=== PATIENT | male | born 1955 | race Caucasian/White ===

== ENCOUNTER 2019-02-15 10:38 | Day surgery (SDC) | payer OTHER, SELFPAY ==
[2019-02-15] MEDS: PROPARACAINE 0.5% OPHTH SOL 2 DROPS EYE-OP (11:35)
[2019-02-15] MEDS: CATARACT EYE COMPOUND (10 DROPS/SYRINGE) 3 DROPS EYE-OP (11:37)
[2019-02-15 11:39] VITALS: BP 151/84; PULSE 67; RESP 16; TEMP 36.7; O2SAT 99; BMI 29.8
--- NOTE | 2019-02-15 12:30 | PM.PREOP ---
Pre-operative Note Interval Note History & Physical reviewed/Exam performed by Physician: No Changes to H&P: No
--- NOTE | 2019-02-15 12:30 | PM.OP.1 ---
Operative Date/Time/Diagnoses Pre-op diagnosis: Nuclear cataract right eye Procedure & Clinicians Procedure: Cataract Surgery Same procedure as scheduled: Yes Surgeon: Patric Stoner Anesthesia Type: MAC +/- and Sedation Operative Notes Procedure in detail: Patient brought to the operating suite. Tetracaine drops placed in the right eye. Patient was prepped and draped in sterile manner. Wire lid speculum was placed in the eye. Betadine drops were placed on the eye. This was irrigated. Lidocaine jelly was placed on the eye. A paracentesis port was created with a side-port blade. 0.1 mL 1% preservative free lidocaine was injected into the anterior chamber. The anterior chamber was deepened with viscoelastic. 2.6 mm keratome was used to create a temporal clear corneal incision. Cystotome and Utrata forceps were used to create continuous tear capsulorrhexis. Balanced salt solution was used to hydro dissect the nucleus. The phacoemulsification handpiece was inserted and the nucleus was removed using the stop and chop technique. The irrigation aspiration handpiece was inserted and the remaining cortex was removed. Anterior chamber was deepened with viscoelastic. An Rogers ZCB00 intraocular lens with a power of 20.0 was injected into the capsular bag. Irrigation aspiration handpiece was inserted and the remaining viscoelastic was removed. Incision was hydrated with balanced salt solution and found to be leak free with pressure with Weck-Magi sponges. 0.1 mL Vigamox injected anterior chamber. 0.3 mL Kenalog 10 mg was injected subconjunctivally. Lid speculum was removed. The patient left the operating room in excellent condition. Complications: none Post-operative Condition: stable Disposition: same day surgery
[2019-02-15] MEDS: LIDOCAINE JELLY 2% 5 ML 1 APPLIC TOP (12:48)
[2019-02-15] MEDS: CHONDROIDTIN/SOD HYALURONATE 1.05 ML SYRINGE INTRAOCULA (12:48)
[2019-02-15] MEDS: TETRACAINE 0.5% OPHTH DROPS 4 ML 2 DROPS EYE-OP (12:49)
[2019-02-15] MEDS: MOXIFLOXACIN INJ 5 MG/ML VIAL EYE-OP (12:49)
[2019-02-15] MEDS: PHENYLEPHRINE/LIDOCAINE VIAL (OR) 0.2 ML EYE-OP (12:49)
[2019-02-15] MEDS: TRIAMCINOLONE 50 MG/5 ML VIAL INJ (12:50)
[2019-02-15] MEDS: BALANCED SALT IRRIG SOLN NO.2 500 ML, EPINEPHrine 1 MG IRR (12:50)
[2019-02-15 13:10] VITALS: BP 131/81; PULSE 77; RESP 16; TEMP 36.7; O2SAT 98
--- NOTE | 2019-02-15 15:57 | SUR.PHASEII ---
1315 iv d/c'ed prior to discharge.
== END 2019-02-15 13:30 | disposition home or self-care (01) ==
PROVIDERS: Family Provider Internal Medicine; PCP Internal Medicine; Visit Provider Ophthalmology
PROC: (CPT 66984; principal; 2019-02-15 12:45)
DX: H25.11 Age-related nuclear cataract, right eye (principal); E11.9 Type 2 diabetes mellitus without complications; I10 Essential (primary) hypertension; Z79.84 Long term (current) use of oral hypoglycemic drugs
CPT/HCPCS: 66984; J0171; J2250; J3301

== ENCOUNTER 2019-03-01 09:03 | Day surgery (SDC) | payer OTHER, SELFPAY ==
[2019-03-01] MEDS: PROPARACAINE 0.5% OPHTH SOL 2 DROPS EYE-OP (10:05)
[2019-03-01 10:12] VITALS: BP 146/82; PULSE 62; RESP 16; TEMP 36.4; O2SAT 98; BMI 30.2
[2019-03-01] MEDS: CATARACT EYE COMPOUND (10 DROPS/SYRINGE) 3 DROPS EYE-OP (10:25)
--- NOTE | 2019-03-01 10:42 | PM.PREOP ---
Pre-operative Note Interval Note History & Physical reviewed/Exam performed by Physician: No Changes to H&P: No
--- NOTE | 2019-03-01 10:42 | PM.OP.1 ---
Operative Date/Time/Diagnoses Pre-op diagnosis: Nuclear Cataract Left eye Post-op diagnosis: same Procedure & Clinicians Surgeon: Patric Stoner Anesthesia Type: MAC +/- and Sedation Operative Notes Procedure in detail: Patient brought to the operating suite. Tetracaine drops placed in the left eye. Patient was prepped and draped in sterile manner. Wire lid speculum was placed in the eye. Betadine drops were placed on the eye. This was irrigated. Lidocaine jelly was placed on the eye. A paracentesis port was created with a side-port blade. 0.1 mL 1% preservative free lidocaine was injected into the anterior chamber. The anterior chamber was deepened with viscoelastic. 2.6 mm keratome was used to create a temporal clear corneal incision. Cystotome and Utrata forceps were used to create continuous tear capsulorrhexis. Balanced salt solution was used to hydro dissect the nucleus. The phacoemulsification handpiece was inserted and the nucleus was removed using the stop and chop technique. The irrigation aspiration handpiece was inserted and the remaining cortex was removed. Anterior chamber was deepened with viscoelastic. An Rogers ZCB00 intraocular lens with a power of 20.5 was injected into the capsular bag. Irrigation aspiration handpiece was inserted and the remaining viscoelastic was removed. Incision was hydrated with balanced salt solution and found to be leak free with pressure with Weck-Magi sponges. 0.1 mL Vigamox injected anterior chamber. 0.3 mL Kenalog 10 mg was injected subconjunctivally. Lid speculum was removed. The patient left the operating room in excellent condition. Complications: none Post-operative Condition: stable Disposition: same day surgery
--- NOTE | 2019-03-01 10:53 | SUR.OPER ---
Supine on eye stretcher, head on extension cradle secured with tape. Arms tucked at sides with blanket. Pillow under knees.
[2019-03-01] MEDS: MOXIFLOXACIN INJ 5 MG/ML VIAL EYE-OP (10:54)
[2019-03-01] MEDS: PHENYLEPHRINE/LIDOCAINE VIAL (OR) 0.2 ML EYE-OP (10:54)
[2019-03-01] MEDS: CHONDROIDTIN/SOD HYALURONATE 1.05 ML SYRINGE INTRAOCULA (10:54)
[2019-03-01] MEDS: TETRACAINE 0.5% OPHTH DROPS 4 ML 2 DROPS EYE-OP (10:55)
[2019-03-01] MEDS: TRIAMCINOLONE 50 MG/5 ML VIAL INJ (10:55)
[2019-03-01] MEDS: BALANCED SALT IRRIG SOLN NO.2 500 ML, EPINEPHrine 1 MG IRR (10:55)
[2019-03-01] MEDS: LIDOCAINE JELLY 2% 5 ML 1 APPLIC TOP (10:55)
[2019-03-01 11:12] VITALS: BP 129/80; PULSE 62; RESP 15; TEMP 36.3; O2SAT 98
== END 2019-03-01 11:22 | disposition home or self-care (01) ==
PROVIDERS: Family Provider Internal Medicine; PCP Internal Medicine; Visit Provider Ophthalmology
PROC: (CPT 66984; principal; 2019-03-01 11:15)
DX: H25.12 Age-related nuclear cataract, left eye (principal); E11.9 Type 2 diabetes mellitus without complications; I10 Essential (primary) hypertension; Z79.4 Long term (current) use of insulin
CPT/HCPCS: 66984; J0171; J2250; J3301

== ENCOUNTER → 2019-09-13 08:30 | Outpatient (CLI) | payer OTHER, SELFPAY ==
[2019-09-13 09:25] LABS: Add Manual Diff / Slide Review NO; Basophils Absolute Auto 0 /uL (0-100); Eosinophils Absolute Auto 200 /uL (0-450); Hematocrit 29.4 % (41-53); Hemoglobin 9.5 g/dL (13.5-17.5); Lymphocytes Absolute Auto 1300 /uL (1100-4500); Lymphocytes Percent Auto 33.3 % (25-40); Mean Corpuscular HGB Conc 32.2 % (30-36); Mean Corpuscular Hemoglobin 21.6 PG (26-34); Mean Corpuscular Volume 67.1 fL (80-100); Monocytes Absolute Auto 300 /uL (0-900); Monocytes Percent Auto 8.7 % (3-14); Neutrophils Absolute Auto 2000 /uL (1500-7000); Platelet Count 96 X10^3/uL (150-400); Red Blood Cell Count 4.38 X10^6/uL (4.5-5.9); White Blood Cell Count 3.9 X10^3/uL (4.5-11.0)
[2019-09-13 09:42] LABS: Hemoglobin A1C% w Est Avg Glu 8.1 % (4.0-6.0)
[2019-09-13 10:05] LABS: Alanine Aminotransferase 30 IU/L (<50); Albumin Globulin Ratio 1.4 (1.0-2.8); Alkaline Phosphatase 67 U/L (38-126); Aspartate Aminotransferase 47 IU/L (17-59); Bilirubin Total 1.2 mg/dL (0.2-1.3); Blood Urea Nitrogen 16 mg/dL (9-20); Calcium 9.3 mg/dL (8.4-10.2); Carbon Dioxide 25 mmol/L (22-32); Chloride 105 mmol/L (98-107); Cholesterol 124 mg/dL (140-199); Estimated Glomerular Filt Rate > 60.0 mL/min (>60); Globulin 2.9 g/dL (1.7-4.1); Glucose 163 mg/dL (80-110); HDL Cholesterol 23 mg/dL (40-60); HEMOLYSIS < 15 (0-50); LDL Cholesterol Calculated 58 mg/dL (<100); Potassium 4.5 mmol/L (3.4-5.1); Sodium 139 mmol/L (137-145); Total Protein 6.9 g/dL (6.3-8.2); Triglycerides 215 mg/dL (35-150)
[2019-09-13 10:19] LABS: Hypochromasia 2+; Microcytosis 2+; Poikilocytosis 1+
[2019-09-13 10:37] LABS: TSH w/ Reflex to FT4 1.98 uIU/mL (0.47-4.68)
[2019-09-13 14:04] LABS: Magnesium 2.2 mg/dL (1.6-2.3)
[2019-09-13 15:25] LABS: HEMOLYSIS < 15 (0-50); Iron 42 ug/dL (49-181)
[2019-09-13 15:36] LABS: Percent Iron Saturation 8 % (20-50); Total Iron Binding Capacity 495 ug/dL (261-462); Transferrin 380 mg/dL (206-381)
[2019-09-13 16:01] LABS: Ferritin 8 ng/mL (18-464)
== END ==
PROVIDERS: Family Provider Internal Medicine; PCP Internal Medicine; Referring Provider Internal Medicine; Visit Provider Internal Medicine
DX: I10 Essential (primary) hypertension (principal); E11.9 Type 2 diabetes mellitus without complications; K75.81 Nonalcoholic steatohepatitis (NASH)
CPT/HCPCS: 36415; 80053; 80061; 82728; 83036; 83540; 83550; 83735; 84443; 85025

== ENCOUNTER → 2019-11-02 13:34 | Outpatient (CLI) | payer OTHER, SELFPAY ==
[2019-11-02 14:18] LABS: Add Manual Diff / Slide Review NO; Basophils Absolute Auto 0 /uL (0-100); Basophils Percent Auto 0.9 % (0-2); Eosinophils Absolute Auto 200 /uL (0-450); Eosinophils Percent Auto 4.8 % (2-4); Hematocrit 33.1 % (41-53); Hemoglobin 10.4 g/dL (13.5-17.5); Lymphocytes Absolute Auto 1100 /uL (1100-4500); Lymphocytes Percent Auto 25.2 % (25-40); Mean Corpuscular HGB Conc 31.5 % (30-36); Mean Corpuscular Hemoglobin 22.6 PG (26-34); Mean Corpuscular Volume 71.9 fL (80-100); Monocytes Absolute Auto 400 /uL (0-900); Monocytes Percent Auto 9.4 % (3-14); Neutrophils Absolute Auto 2700 /uL (1500-7000); Neutrophils Percent Auto 59.7 % (50-75); Platelet Count 99 X10^3/uL (150-400); Red Blood Cell Count 4.61 X10^6/uL (4.5-5.9); Red Cell Distribution Width 25.4 % (11.6-14.8); White Blood Cell Count 4.4 X10^3/uL (4.5-11.0)
[2019-11-02 14:33] LABS: HEMOLYSIS < 15 (0-50); Iron 49 ug/dL (49-181)
[2019-11-02 14:37] LABS: Anisocytosis 2+; Ovalocytes 1+; Poikilocytosis 1+
[2019-11-02 14:44] LABS: Percent Iron Saturation 10 % (20-50); Total Iron Binding Capacity 467 ug/dL (261-462); Transferrin 342 mg/dL (206-381)
== END ==
PROVIDERS: Family Provider Internal Medicine; PCP Internal Medicine; Referring Provider Internal Medicine; Visit Provider Internal Medicine
DX: D50.0 Iron deficiency anemia secondary to blood loss (chronic) (principal)
CPT/HCPCS: 36415; 83540; 83550; 85025

== ENCOUNTER → 2019-12-15 14:05 | Outpatient (CLI) | payer OTHER, SELFPAY ==
[2019-12-15 15:08] LABS: Add Manual Diff / Slide Review NO; Basophils Absolute Auto 0 /uL (0-100); Basophils Percent Auto 0.6 % (0-2); Eosinophils Absolute Auto 200 /uL (0-450); Eosinophils Percent Auto 5.2 % (2-4); Hematocrit 36.8 % (41-53); Hemoglobin 11.9 g/dL (13.5-17.5); Lymphocytes Absolute Auto 1300 /uL (1100-4500); Lymphocytes Percent Auto 30.7 % (25-40); Mean Corpuscular HGB Conc 32.5 % (30-36); Mean Corpuscular Hemoglobin 24.6 PG (26-34); Mean Corpuscular Volume 75.7 fL (80-100); Monocytes Absolute Auto 400 /uL (0-900); Monocytes Percent Auto 10.1 % (3-14); Neutrophils Absolute Auto 2300 /uL (1500-7000); Neutrophils Percent Auto 53.4 % (50-75); Platelet Count 92 X10^3/uL (150-400); Red Blood Cell Count 4.86 X10^6/uL (4.5-5.9); Red Cell Distribution Width 21.5 % (11.6-14.8); White Blood Cell Count 4.2 X10^3/uL (4.5-11.0)
[2019-12-15 15:48] LABS: Anisocytosis 2+; Hypochromasia 1+; Ovalocytes 2+
[2019-12-15 15:50] LABS: Iron 65 ug/dL (49-181)
== END ==
PROVIDERS: Family Provider Internal Medicine; PCP Internal Medicine; Referring Provider Internal Medicine; Visit Provider Internal Medicine
DX: D50.0 Iron deficiency anemia secondary to blood loss (chronic) (principal)
CPT/HCPCS: 36415; 83540; 85025

== ENCOUNTER → 2020-01-31 08:03 | Outpatient (CLI) | payer OTHER, SELFPAY ==
--- NOTE | 2020-01-31 | DI.US.S_ITS ---
PROCEDURE: US ABDOMEN COMPLETE INDICATIONS: CIRRHOSIS TECHNIQUE: Real-time scanning was performed of the abdominal and retroperitoneal organs, with image documentation. Color and pulse Doppler interrogation was also performed of the hepatic and splenic vessels, or of the lesion of interest. COMPARISON: [facility], [place], ABDOMEN COMPLETE, 11/13/2016, 16:29. FINDINGS: Liver: The liver demonstrates normal size. The liver demonstrates generalized mildly increased echogenicity. This decreases ultrasound sensitivity for detection of hepatic masses. However, there is a partially shadowing 2 x 1.6 x 1.7 cm mass within the right lobe of the liver. The liver demonstrates a nodular contour. Doppler: The main portal vein and the left portal vein appear prominent in size and demonstrate partially obstructive thrombus. This is best seen on image 34/75. The main portal vein measures up to 17 mm. Gallbladder: Removed. Biliary ducts: Not seen, obscured by overlying bowel gas. Spleen: Enlarged, measuring 20 cm. An accessory spleen can be seen. Pancreas: Visualized portions of the pancreas appear normal. Kidneys: Both kidneys are normal in size and echotexture. Right kidney measures 10.2 cm long; left kidney measures 10.5 cm long. No hydronephrosis or nephrolithiasis. No solid renal masses. Aorta: Visualized abdominal aorta is normal in caliber at less than 3 cm. Iliacs: Not seen, obscured by overlying bowel gas. IVC: Not well seen, obscured by overlying bowel gas. Miscellaneous: No free abdominal fluid. IMPRESSION: Cirrhotic appearing liver. The main portal vein and left portal vein appear dilated and apparently contain partially obstructing thrombus. Please consider a dedicated liver protocol CT study (without and with contrast) for further evaluation. There is a 2 cm hyperechoic lesion within the right liver lobe. This can be further assessed at the recommended liver protocol CT. Splenomegaly. Status post cholecystectomy. Dictated by: Tobias Stoner M.D. on 01/31/2020 at 9:08 Approved by: Tobias Stoner M.D. on 01/31/2020 at 9:13
[2020-01-31 10:07] LABS: Add Manual Diff / Slide Review NO; Basophils Absolute Auto 0 /uL (0-100); Basophils Percent Auto 0.7 % (0-2); Eosinophils Absolute Auto 200 /uL (0-450); Eosinophils Percent Auto 5.8 % (2-4); Hematocrit 38.1 % (41-53); Hemoglobin 12.6 g/dL (13.5-17.5); Lymphocytes Absolute Auto 1200 /uL (1100-4500); Lymphocytes Percent Auto 29.3 % (25-40); Mean Corpuscular HGB Conc 33.1 % (30-36); Mean Corpuscular Hemoglobin 26.4 PG (26-34); Monocytes Absolute Auto 300 /uL (0-900); Monocytes Percent Auto 8.1 % (3-14); Neutrophils Absolute Auto 2200 /uL (1500-7000); Neutrophils Percent Auto 56.1 % (50-75); Platelet Count 67 X10^3/uL (150-400); Red Blood Cell Count 4.77 X10^6/uL (4.5-5.9); Red Cell Distribution Width 20.1 % (11.6-14.8)
[2020-01-31 10:12] LABS: INR 1.3 (0.9-1.3); Prothrombin Time 14.8 SECONDS (10.1-12.7)
[2020-01-31 10:33] LABS: Alanine Aminotransferase 44 IU/L (<50); Albumin 3.9 g/dL (3.5-5.0); Albumin Globulin Ratio 1.4 (1.0-2.8); Alkaline Phosphatase 64 U/L (38-126); Aspartate Aminotransferase 59 IU/L (17-59); BUN Creatinine Ratio 25.8 (6-22); Bilirubin Total 1.8 mg/dL (0.2-1.3); Blood Urea Nitrogen 17 mg/dL (9-20); Calcium 9.1 mg/dL (8.4-10.2); Carbon Dioxide 28 mmol/L (22-32); Chloride 106 mmol/L (98-107); Estimated Glomerular Filt Rate > 60.0 mL/min (>60); Globulin 2.7 g/dL (1.7-4.1); Glucose 151 mg/dL (80-110); HEMOLYSIS < 15 (0-50); Potassium 4.6 mmol/L (3.4-5.1); Sodium 139 mmol/L (137-145); Total Protein 6.6 g/dL (6.3-8.2)
[2020-01-31 11:04] LABS: Anisocytosis 1+
[2020-02-01 07:18] LABS: Alpha Fetoprotein 2.6 ng/mL (0.0-8.3)
== END ==
PROVIDERS: Family Provider Internal Medicine; PCP Internal Medicine; Referring Provider Internal Medicine
DX: K75.81 Nonalcoholic steatohepatitis (NASH) (principal); R16.1 Splenomegaly, not elsewhere classified; K76.9 Liver disease, unspecified; Z90.49 Acquired absence of other specified parts of digestive tract
CPT/HCPCS: 36415; 76700; 80053; 82105; 85025; 85610

== ENCOUNTER → 2020-03-12 07:29 | Outpatient (CLI) | payer OTHER, SELFPAY ==
--- NOTE | 2020-03-12 | DI.CT.S_ITS ---
/PROCEDURE: CT ABDOMEN WO/W CON INDICATIONS: Cirrhosis and liver lesion seen on prior ultrasound. TECHNIQUE: 4 phase scanning was performed. Non-contrast 5 mm axial sections acquired from the diaphragm to the iliac crests. Following the administration of intravenous contrast, 5 mm thick arterial-phase, portal venous-phase, and 5-minute delayed phase images were acquired through the liver. 5 mm thick coronal and sagittal reformats were performed. For radiation dose reduction, the following was used: automated exposure control, adjustment of mA and/or kV according to patient size. COMPARISON: [facility], [place], US ABDOMEN COMPLETE, 01/31/2020, 8:41. FINDINGS: Image quality: Excellent. Lung bases: Lung bases are clear. Heart size is normal. Liver: The liver is nodular in contour with diffuse heterogeneity of the hepatic parenchyma consistent with cirrhosis. Within segment 4B of the left hepatic lobe adjacent to the left portal vein, there is a focal masslike observation demonstrating washout on portal venous and delayed phases measuring approximately 2.4 x 1.8 x 1.4 cm. There is suggestion of an associated pseudo capsule. The finding appears isointense to the hepatic parenchyma on noncontrast images and isoattenuating on the arterial phase following contrast administration. There is mass effect on the adjacent left portal vein with associated focal narrowing and suspected vascular invasion. Elsewhere, there are multiple small indistinct slightly hypoattenuating foci throughout the liver likely representing regenerative or dysplastic nodules. Other solid organs: Gallbladder is surgically absent. Biliary system is non dilated. Pancreas is normal in morphology. Spleen is enlarged, measuring up to 20.4 cm. No adrenal nodules. Both kidneys demonstrate normal size and enhancement, without hydronephrosis or nephrolithiasis. Nodes and vessels: No retroperitoneal or mesenteric adenopathy by size criteria. Aorta and inferior vena cava are normal in size. There is enlargement of the portal and splenic veins. Partial filling defects consistent with thrombus are demonstrated within the left and main portal veins extending to the portal splenic confluence and within the splenic vein. There are gastroesophageal and splenic varices. A recanalized paraumbilical vein is demonstrated. Bowel and peritoneum: Visualized bowel loops are normal in caliber. There is a small amount of fat stranding and fluid along the 2nd and 3rd portions of the duodenum with mild segmental wall thickening suggestive of a duodenitis. Minimal free fluid is also demonstrated along the anterior pararenal spaces bilaterally, right greater than left. No free air. Bones: No suspicious bony lesions. No vertebral body compression fractures. Miscellaneous: No ventral hernias. IMPRESSION: 1. LR-4 observation in segment 4B of the left hepatic lobe consistent with hepatocellular carcinoma. There is mass effect on and probable invasion of the left portal vein with associated nonocclusive thrombus. 2. Additional nonocclusive filling defects demonstrated within the main portal and splenic veins consistent with thrombus. Tumor thrombus is not excluded and if indicated further evaluation may be obtained with a liver protocol MRI. 3. Nodular cirrhotic liver with numerous indistinct nodules throughout the hepatic parenchyma likely representing regenerative or dysplastic nodules. Recommend attention on follow-up. 4. Findings consistent with portal hypertension including splenomegaly, gastroesophageal and splenic varices, and a recanalized paraumbilical vein. 5. Mild fat stranding and fluid along the 2nd and 3rd portions of the duodenum with associated mild segmental wall thickening suggestive of a nonspecific duodenitis. The differential includes sequelae of pancreatitis. Recommend correlation clinically. Dictated by: Enrique Fletcher M.D. on 03/12/2020 at 11:38 Approved by: Enrique Fletcher M.D. on 03/12/2020 at 11:56
[2020-03-12 07:56] LABS: Add Manual Diff / Slide Review NO; Basophils Absolute Auto 0 /uL (0-100); Eosinophils Absolute Auto 200 /uL (0-450); Eosinophils Percent Auto 5.1 % (2-4); Hematocrit 37.4 % (41-53); Hemoglobin 12.4 g/dL (13.5-17.5); Lymphocytes Absolute Auto 1100 /uL (1100-4500); Lymphocytes Percent Auto 29.2 % (25-40); Mean Corpuscular HGB Conc 33.1 % (30-36); Mean Corpuscular Hemoglobin 27.7 PG (26-34); Mean Corpuscular Volume 83.4 fL (80-100); Monocytes Absolute Auto 300 /uL (0-900); Neutrophils Absolute Auto 2200 /uL (1500-7000); Neutrophils Percent Auto 56.7 % (50-75); Platelet Count 74 X10^3/uL (150-400); Red Blood Cell Count 4.49 X10^6/uL (4.5-5.9); Red Cell Distribution Width 18.2 % (11.6-14.8); White Blood Cell Count 3.9 X10^3/uL (4.5-11.0)
[2020-03-12 08:02] LABS: INR 1.3 (0.9-1.3); Prothrombin Time 15.3 SECONDS (10.1-12.7)
[2020-03-12 08:03] LABS: Hemoglobin A1C% w Est Avg Glu 7.9 % (4.0-6.0)
[2020-03-12 08:07] LABS: Alanine Aminotransferase 38 IU/L (<50); Albumin 3.8 g/dL (3.5-5.0); Albumin Globulin Ratio 1.3 (1.0-2.8); Alkaline Phosphatase 78 U/L (38-126); Aspartate Aminotransferase 57 IU/L (17-59); BUN Creatinine Ratio 26.4 (6-22); Bilirubin Total 1.3 mg/dL (0.2-1.3); Blood Urea Nitrogen 19 mg/dL (9-20); Calcium 8.9 mg/dL (8.4-10.2); Carbon Dioxide 30 mmol/L (22-32); Chloride 104 mmol/L (98-107); Estimated Glomerular Filt Rate > 60.0 mL/min (>60); Globulin 2.9 g/dL (1.7-4.1); Glucose 258 mg/dL (80-110); HEMOLYSIS 21 (0-50); Potassium 4.4 mmol/L (3.4-5.1); Sodium 138 mmol/L (137-145); Total Protein 6.7 g/dL (6.3-8.2)
[2020-03-12 08:11] LABS: HEMOLYSIS < 15 (0-50); Iron 46 ug/dL (49-181)
[2020-03-12 08:22] LABS: Percent Iron Saturation 11 % (20-50); Total Iron Binding Capacity 429 ug/dL (261-462)
[2020-03-12 08:26] LABS: Transferrin 318 mg/dL (206-381)
[2020-03-12 08:41] LABS: Ferritin 19 ng/mL (18-464)
[2020-03-12 23:57] LABS: Alpha Fetoprotein 2.5 ng/mL (0.0-8.3)
== END ==
PROVIDERS: Family Provider Internal Medicine; PCP Internal Medicine
DX: K74.60 Unspecified cirrhosis of liver (principal); K76.9 Liver disease, unspecified; R16.1 Splenomegaly, not elsewhere classified; I85.00 Esophageal varices without bleeding; I86.4 Gastric varices; I86.8 Varicose veins of other specified sites; E11.9 Type 2 diabetes mellitus without complications; D50.0 Iron deficiency anemia secondary to blood loss (chronic); Z90.49 Acquired absence of other specified parts of digestive tract
CPT/HCPCS: 36415; 74170; 80053; 82105; 82728; 83036; 83540; 83550; 85025; 85610; Q9967